=== PATIENT | male | born 1980 | race African-American/Black ===

== ENCOUNTER 2017-01-29 21:41 | Emergency (ER) | payer OTHER ==
[~2017-01-29] VITALS: Ht 185.4 cm; Wt 80.7 kg
[2017-01-29] MEDS ORDERED: ROBA500T PO (23:43)
[2017-01-29] MEDS ORDERED: IBUP800T23 PO (23:44)
[2017-01-29] MEDS ORDERED: IBUPROFEN 800 MG TAB PO ONE (23:45)
[2017-01-29] MEDS ORDERED: METHOCARBAMOL 500 MG TAB PO ONE (23:45)
[2017-01-29 23:57] VITALS: BP 157/103
== END 2017-01-29 23:59 | disposition home or self-care (01) ==
LOC: M ED 23:09
DX: S46.811A Strain of other muscles, fascia and tendons at shoulder and upper arm level, right arm, initial encounter (principal); X58.XXXA Exposure to other specified factors, initial encounter; Y92.9 Unspecified place or not applicable; Y93.9 Activity, unspecified; Y99.9 Unspecified external cause status; K64.9 Unspecified hemorrhoids

== ENCOUNTER 2017-10-19 19:43 | Emergency (ER) | payer OTHER ==
[~2017-10-19] VITALS: Ht 185.4 cm; Wt 80.0 kg
[~2017-10-19 19:43] MED LIST: IBUP1TAB7 PO; ROBA500T PO
[2017-10-19] MEDS ORDERED: NS 1,000 ML IV ONE (21:30)
[2017-10-19] MEDS ORDERED: ONDANSETRON 4MG/2ML VIAL (J2405) IV ONE (21:30)
[2017-10-19] MEDS ORDERED: MORPHINE 4 MG/ML 1ML SYRINGE IV ONE (21:30)
[2017-10-19 21:55] LABS: BASO % 0.5 % (0.0-1.0); EOS # 0.1 10^3/uL (0.0-0.50); EOS % 1.3 % (0.0-3.0); IMMATURE GRANULOCYTE % 0.5 % (0-0); LYMPH # 2.9 10^3/uL (1.5-4.5); LYMPH % 32.7 % (24.0-44.0); MEAN CORPUSCULAR HEMOGLOBIN 26.5 pg (27.0-33.0); MEAN CORPUSCULAR HGB CONC 31.6 g/dl (32.0-36.5); MONO # 0.6 10^3/uL (0.0-0.8); MONO % 7.3 % (0.0-5.0); NEUTROPHILS # 5.1 10^3/uL (1.8-7.7); NEUTROPHILS % 57.7 % (36.0-66.0); PLATELET COUNT, AUTOMATED 214 10^3/uL (150-450); RED CELL DISTRIBUTION WIDTH 13.9 % (11.5-14.5); WHITE BLOOD COUNT 8.8 10^3/uL (4.0-10.0)
[2017-10-19 22:44] LABS: ALBUMIN 3.7 GM/DL (3.2-5.2); ALBUMIN/GLOBULIN RATIO 1.09 (1.00-1.93); ALKALINE PHOSPHATASE 55 U/L (45-117); ALT/SGPT 25 U/L (12-78); ANION GAP 6 MEQ/L (8-16); AST/SGOT 15 U/L (7-37); BILIRUBIN,DIRECT < 0.1 MG/DL (0.0-0.2); BILIRUBIN,TOTAL 0.3 MG/DL (0.2-1.0); BLOOD UREA NITROGEN 15 MG/DL (7-18); CALCIUM LEVEL 8.5 MG/DL (8.5-10.1); CARBON DIOXIDE LEVEL 28 MEQ/L (21-32); CHLORIDE LEVEL 108 MEQ/L (98-107); CREATININE FOR GFR 0.97 MG/DL (0.70-1.30); GLOMERULAR FILTRATION RATE > 60.0 (>60); GLUCOSE, FASTING 93 MG/DL (70-105); POTASSIUM SERUM 3.7 MEQ/L (3.5-5.1); SODIUM LEVEL 142 MEQ/L (136-145); TOTAL PROTEIN 7.1 GM/DL (6.4-8.2)
[2017-10-19] MEDS ORDERED: ISOVUE-370 76% 100ML VIAL (Q9967) As Ordered ONE (22:47)
--- NOTE | 2017-10-19 23:13 | REP ---
Clinical: Acute right lower quadrant pain. Technique: Axial contrast enhanced images from the lung bases to the pubic symphysis using 100 ml Isovue 370 intravenous contrast material with coronal and sagittal re-formations. Comparison: None. Findings: Lung bases are clear. Visualized heart and pericardium normal. Liver, spleen, pancreas, bilateral adrenal glands and kidneys are normal. Incidental subcentimeter hepatic and renal cysts as well as 1.8 cm right renal cyst identified. The enteric system including stomach, small and large bowel is without obstruction or acute inflammatory process. Normal terminal ileum and appendix identified in the right lower quadrant. Pelvis demonstrates collapsed bladder and age appropriate prostate/seminal vesicles. No pelvic fluid. No free air. No adenopathy. Vasculature is normal. Musculoskeletal structures are intact. Impression: 1. No acute abdominopelvic pathology appreciated. Specifically, normal terminal ileum and appendix in the right lower quadrant. No free fluid or adenopathy. 2. Incidental subcentimeter hepatic and renal cysts along with 1.8 cm right renal cyst. Signed by Colt Fernando MD 10/19/2017 11:04 P
[2017-10-19] MEDS ORDERED: ZOFR4TAB3 PO (23:46)
[2017-10-19 23:52] VITALS: BP 135/86
== END 2017-10-20 00:01 | disposition home or self-care (01) ==
LOC: M ED 19:43
DX: R10.84 Generalized abdominal pain (principal); K76.89 Other specified diseases of liver; N28.1 Cyst of kidney, acquired
CPT/HCPCS: 36415; 74177; 80048; 80076; 81001; 83690; 85025; 96361; 96374; 96375; 99284; J2405; Q9967

== ENCOUNTER 2019-09-19 12:22 | Emergency (ER) | payer OTHER ==
[~2019-09-19] VITALS: Ht 185.4 cm; Wt 80.9 kg
[~2019-09-19 12:22] MED LIST changes: +ZOFR4TAB14 PO
[2019-09-19 12:50] LABS: BASO % 0.7 % (0.0-1.0); EOS # 0.2 10^3/uL (0.0-0.5); EOS % 3.8 % (0.0-3.0); HEMOGLOBIN 13.8 g/dl (13.5-17.5); LYMPH # 2.6 10^3/uL (1.5-5.0); LYMPH % 46.9 % (24.0-44.0); MEAN CORPUSCULAR HGB CONC 30.7 g/dl (32.0-36.5); MEAN CORPUSCULAR VOLUME 87.9 fl (80.0-96.0); MONO # 0.5 10^3/uL (0.0-0.8); MONO % 8.5 % (0.0-5.0); NEUTROPHILS # 2.2 10^3/uL (1.5-8.5); NEUTROPHILS % 39.7 % (36.0-66.0); PLATELET COUNT, AUTOMATED 183 10^3/uL (150-450); RED BLOOD COUNT 5.12 10^6/uL (4.30-6.10); WHITE BLOOD COUNT 5.5 10^3/uL (4.0-10.0)
[2019-09-19] MEDS ORDERED: AZEL20CR TOP (12:51)
[2019-09-19] MEDS ORDERED: VIAG100T PO (12:51)
[2019-09-19] MEDS ORDERED: MONT10TA2 PO (12:51)
[2019-09-19] MEDS ORDERED: ACET1TAB55 PO (12:51)
[2019-09-19] MEDS ORDERED: BENZ10LI12 TOP (12:51)
[2019-09-19] MEDS ORDERED: DOXY100T PO (12:51)
--- NOTE | 2019-09-19 13:02 | REP ---
Clinical: Acute chest pain . Comparison: None . Findings: The mediastinum and cardiac silhouette are stable and within normal limits for portable technique. The lung urbano are clear without acute consolidation, effusion, or pneumothorax. Skeletal structures are intact. Impression: No acute cardiopulmonary process appreciated. Electronically Signed by Colt Fernando MD 09/19/2019 12:54 P
[2019-09-19 13:12] LABS: BLOOD UREA NITROGEN 11 MG/DL (7-18); CALCIUM LEVEL 9.2 MG/DL (8.5-10.1); CARBON DIOXIDE LEVEL 32 MEQ/L (21-32); CHLORIDE LEVEL 105 MEQ/L (98-107); CK-MB VALUE MASS < 1.0 NG/ML (<3.6); CPK CREATINE PHOSPHOKINASE 241 U/L (39-308); CREATININE FOR GFR 1.04 MG/DL (0.70-1.30); GLOMERULAR FILTRATION RATE > 60.0 (>60); GLUCOSE, FASTING 79 MG/DL (70-100); MB/CK RELATIVE INDEX 0.41 (< OR =4); POTASSIUM SERUM 4.1 MEQ/L (3.5-5.1); SODIUM LEVEL 139 MEQ/L (136-145); TROPONIN I < 0.02 NG/ML (< 0.10)
[2019-09-19] MEDS ORDERED: ISOVUE-370 76% 100ML VIAL (Q9967) As Ordered ONE (13:15)
[2019-09-19 13:27] LABS: ALBUMIN 3.9 GM/DL (3.2-5.2); ALT/SGPT 18 U/L (12-78); BILIRUBIN,DIRECT < 0.1 MG/DL (0.0-0.2); BILIRUBIN,TOTAL 0.4 MG/DL (0.2-1.0); TOTAL PROTEIN 7.7 GM/DL (6.4-8.2)
--- NOTE | 2019-09-19 13:42 | REP ---
Clinical: Acute substernal chest pain . Technique: Axial contrast enhanced images from the thoracic inlet to the upper abdomen using 100 ml Isovue 370 intravenous contrast material with multiplanar re-formations. Findings: Satisfactory enhancement of the pulmonary vasculature is achieved and no filling defects are identified to suggest pulmonary embolus. Further evaluation of the mediastinum demonstrates normal thoracic aorta, heart and pericardium. The bilateral lung urbano are well aerated and clear without consolidation pleural effusion or pneumothorax. Tracheobronchial tree is patent. No nodule or mass lesion is identified. No adenopathy noted. Surrounding musculoskeletal structures intact Impression: No evidence for pulmonary embolus. No acute mediastinal or pleural parenchymal process. Electronically Signed by Colt Fernando MD 09/19/2019 01:34 P
--- NOTE | 2019-09-19 13:45 | REP ---
Clinical: Acute umbilical vein. Technique: Axial contrast enhanced images from the lung bases to the pubic symphysis using 100 ml Isovue 370 intravenous contrast material with coronal and sagittal re-formations. Findings: Lung bases are clear. Liver, spleen, pancreas, bilateral adrenal glands and kidneys are normal. Prior cholecystectomy with compensatory biliary ductal dilatation noted. The enteric system is without obstruction or acute inflammatory process. Normal terminal ileum and appendix identified in the right lower quadrant. Pelvis demonstrates normal bladder and prostate/seminal vesicles. No ascites. No free air. No adenopathy. Abdominal aorta and vasculature normal and without aneurysm or dissection. Musculoskeletal structures are intact. Impression: 1. No acute abdominopelvic pathology appreciated. Electronically Signed by Colt Fernando MD 09/19/2019 01:37 P
[2019-09-19 14:31] VITALS: BP 119/82
[2019-09-19] MEDS ORDERED: TUMS500C PO (14:35)
[2019-09-19] MEDS ORDERED: PRIL20TA2 PO (14:35)
--- NOTE | 2019-09-19 22:43 | ECGEPIP ---
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
== END 2019-09-19 14:48 | disposition home or self-care (01) ==
LOC: M ED 12:22
DX: R07.89 Other chest pain (principal); R06.02 Shortness of breath; Z79.899 Other long term (current) drug therapy
CPT/HCPCS: 36415; 71045; 71275; 74177; 80048; 80076; 82550; 82553; 84484; 85025; 93005; 93041; 94760; 99285; Q9967